=== PATIENT | male | born 1945 | race Two or more races ===

== ENCOUNTER 2023-05-06 11:17 | Emergency (ER) | payer OTHER ==
[~2023-05-06] VITALS: Ht 180.3 cm; Wt 79.4 kg
== END 2023-05-06 14:26 | disposition home or self-care (01) ==
LOC: ER 11:17
DX: U07.1 COVID-19 (principal)

== ENCOUNTER 2023-06-10 18:54 | Inpatient (IN) | payer OTHER ==
[~2023-06-10] VITALS: Ht 180.3 cm; Wt 77.1 kg
[2023-06-10] MEDS ORDERED: RAYOS5 MG PO (19:00)
[2023-06-10] MEDS ORDERED: ENALAPRIL MALEA10 MG PO (19:00)
[2023-06-10] MEDS ORDERED: ADULT LOW DOSE81 M1 PO (19:01)
[2023-06-10] MEDS ORDERED: TAMS0.4C PO (19:01)
[2023-06-10] MEDS ORDERED: RINVOQ ER15 MG PO (19:01)
[2023-06-10] MEDS ORDERED: PROZAC20 MG PO (19:02)
[2023-06-10] MEDS ORDERED: 0.9 % SODIUM CHLORIDE 1,000 ML IV SCH (19:45)
[2023-06-10] MEDS ORDERED: ACETAMINOPHEN 500 MG GEL..CAP PO ONE (20:00)
[2023-06-10 20:43] LABS: HEMOGLOBIN 11.1 g/dL (13-16.00); MEAN CELL VOLUME 87.9 fL (80.0-100.00); MEAN CORPUSCULAR HEMOGLOBIN 31.5 pg (27.00-32.0); MEAN CORPUSCULAR HGB CONC 35.8 g/dl (32.0-36.0); PLATELET COUNT 180 K/uL (150-450); RED BLOOD COUNT 3.53 M/uL (4.00-6.00); RED CELL DISTRIBUTION WIDTH 17.4 % (11.5-14.5)
[2023-06-10 20:59] LABS: PH,URINE 6.5 (5.0-8.0); URINE APPEARANCE Clear; URINE BILIRRUBIN Negative (NEGATIVE); URINE BLOOD Negative; URINE COLOR Dark Yellow; URINE GLUCOSE Negative (NEGATIVE); URINE LEUKOCYTE Negative; URINE NITRATE Negative; URINE PROTEIN Trace (NEGATIVE)
[2023-06-10 21:00] LABS: URINE BACTERIA 30.2 uL (0.0-1933); URINE EPITHELIAL CELLS 3.2 uL (0.0-38.8); URINE WBC 3.8 uL (0.0-23.2)
[2023-06-10] MEDS ORDERED: ONDANSETRON HCL 2 MG/ML VIAL IV ONE (21:00)
[2023-06-10 21:12] LABS: ALBUMIN 3.5 gm/dL (3.4-5.0); BILIRUBIN TOTAL 2.67 mg/dL (0.3-1.2); CALCIUM 8.6 mg/dL (8.5-10.1); CREATININE SERUM 0.81 mg/dL (0.70-1.30); GFR 91.69; GLOBULINA 3.3 G/DL (2.4-3.5); POTASSIUM 4.46 mEq/L (3.5-5.1); TOTAL PROTEIN 6.8 gm/dL (6.4-8.2)
[2023-06-10] MEDS ORDERED: LORazepam 2 MG/ML VIAL IM ONE (23:45)
[2023-06-11] MEDS ORDERED: 0.9 % SODIUM CHLORIDE 1,000 ML IV SCH (00:15)
[2023-06-11] MEDS ORDERED: ACETAMINOPHEN 650 MG SUPP.RECT RECTAL PRN (00:30)
[2023-06-11] MEDS ORDERED: LORazepam 2 MG/ML VIAL IV STA (01:39)
[2023-06-11] MEDS ORDERED: LORazepam 2 MG/ML VIAL IV PUSH PRN (09:15)
[2023-06-11 14:34] LABS: HEMATOCRIT 29.6 % (39.0-48.0); HEMOGLOBIN 10.7 g/dL (13-16.00); MEAN CELL VOLUME 88.2 fL (80.0-100.00); MEAN CORPUSCULAR HEMOGLOBIN 31.9 pg (27.00-32.0); MEAN CORPUSCULAR HGB CONC 36.2 g/dl (32.0-36.0); PLATELET COUNT 181 K/uL (150-450); RED BLOOD COUNT 3.36 M/uL (4.00-6.00); RED CELL DISTRIBUTION WIDTH 17.5 % (11.5-14.5)
[2023-06-11 15:24] LABS: BILIRUBIN TOTAL 2.73 mg/dL (0.3-1.2); CALCIUM 8.1 mg/dL (8.5-10.1); CREATININE SERUM 0.68 mg/dL (0.70-1.30); GFR 112.2; GLOBULINA 2.8 G/DL (2.4-3.5); PHOSPHOROUS 2.7 mg/dL (2.5-4.9); POTASSIUM 4.24 mEq/L (3.5-5.1); TOTAL PROTEIN 5.8 gm/dL (6.4-8.2)
[2023-06-11] MEDS ORDERED: PIPERACILLIN/TAZOBACTAM SODIUM 3.375 GM in 0.9 % SODIUM CHLORIDE 100 ML IV SCH (18:31)
[2023-06-12 05:11] LABS: HEMATOCRIT 29.8 % (39.0-48.0); HEMOGLOBIN 10.7 g/dL (13-16.00); MEAN CELL VOLUME 89.2 fL (80.0-100.00); MEAN CORPUSCULAR HGB CONC 35.8 g/dl (32.0-36.0); PLATELET COUNT 190 K/uL (150-450); RED BLOOD COUNT 3.34 M/uL (4.00-6.00); RED CELL DISTRIBUTION WIDTH 17.5 % (11.5-14.5)
[2023-06-12 05:24] LABS: ALBUMIN 2.8 gm/dL (3.4-5.0); BILIRUBIN TOTAL 2.72 mg/dL (0.3-1.2); CREATININE SERUM 0.71 mg/dL (0.70-1.30); GFR 106.75; GLOBULINA 2.9 G/DL (2.4-3.5); PHOSPHOROUS 2.4 mg/dL (2.5-4.9); POTASSIUM 3.91 mEq/L (3.5-5.1); TOTAL PROTEIN 5.7 gm/dL (6.4-8.2)
[2023-06-12 05:42] LABS: C-REACTIVE PROTEIN 27.1 MG/DL (0.00-0.29)
[2023-06-12 11:24] LABS: URINE APPEARANCE Clear; URINE BILIRRUBIN Small (NEGATIVE); URINE BLOOD Trace; URINE COLOR Dark Yellow; URINE GLUCOSE Negative (NEGATIVE); URINE LEUKOCYTE Negative; URINE NITRATE Negative
[2023-06-12 11:29] LABS: URINE BACTERIA 13.8 uL (0.0-1933); URINE EPITHELIAL CELLS 19.1 uL (0.0-38.8); URINE RBC 37.6 uL (0.0-20.8); URINE WBC 8.5 uL (0.0-23.2)
[2023-06-12 12:00] LABS: URINE PROTEIN 100 (NEGATIVE)
[2023-06-12] MEDS ORDERED: POTASSIUM PHOS,M-BASIC-D-BASIC 9 MM in 0.9 % SODIUM CHLORIDE 250 ML IV ONE (12:00)
[2023-06-12] MEDS ORDERED: FUROsemide 20 MG/2 ML VIAL IV ONE (14:30)
[2023-06-12] MEDS ORDERED: fentaNYL CITRATE 50 MCG/ML AMPUL IV PUSH ONE (16:30)
[2023-06-12] MEDS ORDERED: METHYLPREDNISOLONE SOD SUCC 40 MG VIAL IV STA (22:33)
[2023-06-13 06:36] LABS: HEMATOCRIT 31.7 % (39.0-48.0); HEMOGLOBIN 11.2 g/dL (13-16.00); MEAN CORPUSCULAR HEMOGLOBIN 31.1 pg (27.00-32.0); MEAN CORPUSCULAR HGB CONC 35.3 g/dl (32.0-36.0); PLATELET COUNT 217 K/uL (150-450); RED CELL DISTRIBUTION WIDTH 17.4 % (11.5-14.5)
[2023-06-13] MEDS ORDERED: FUROsemide 40 MG/4 ML VIAL IV STA (06:41)
[2023-06-13] MEDS ORDERED: METHYLPREDNISOLONE SOD SUCC 125 MG VIAL IV STA (06:43)
[2023-06-13] MEDS ORDERED: LEVALBUTEROL HCL 1.25 MG/3 ML SOLUTION IH SCH (06:43)
[2023-06-13 07:11] LABS: ABG PH 7.399 (7.35-7.45); ABG PO2 116.5 mmHg (80-100); ABG pCO2 34.1 mmHg (35-45); BASE EXCESS -3.4 mmol/l; BICARBONATE 20.6 mmol/l (23-25); SaO2 98.5 %; Tco2 21.6 mmol/l; allen test SATISFACTORY; o2 100 %; puncture site RADIAL LEFT
[2023-06-13 07:24] LABS: ALBUMIN 2.7 gm/dL (3.4-5.0); CALCIUM 8.3 mg/dL (8.5-10.1); CREATININE SERUM 0.63 mg/dL (0.70-1.30); GFR 122.54; PHOSPHOROUS 2.5 mg/dL (2.5-4.9); POTASSIUM 4.05 mEq/L (3.5-5.1)
[2023-06-13 08:22] LABS: TSH 0.263 uIU/mL (0.358-3.74)
[2023-06-13] MEDS ORDERED: METHYLPREDNISOLONE SOD SUCC 40 MG VIAL IV SCH (09:00)
[2023-06-13] MEDS ORDERED: SODIUM CL 0.9% 100 ML IV.SOLN IV ONE (16:21)
[2023-06-14 07:57] LABS: CALCIUM 8.9 mg/dL (8.5-10.1); CREATININE SERUM 0.89 mg/dL (0.70-1.30); GFR 82.24; POTASSIUM 3.41 mEq/L (3.5-5.1); T4 TOTAL 6.99 UG/DL (4.5-12.1)
[2023-06-14 08:58] LABS: URIC ACID 3.6 mg/dL (3.5-8.5)
[2023-06-14 17:17] LABS: URINE APPEARANCE Turbid; URINE BILIRRUBIN Small (NEGATIVE); URINE BLOOD Large; URINE COLOR Orange; URINE GLUCOSE Negative (NEGATIVE); URINE LEUKOCYTE Small; URINE NITRATE Negative
[2023-06-14 17:21] LABS: URINE BACTERIA 264.5 uL (0.0-1933); URINE EPITHELIAL CELLS 4.1 uL (0.0-38.8)
[2023-06-14 17:24] LABS: URINE PROTEIN 100 (NEGATIVE)
[2023-06-15] MEDS ORDERED: SODIUM BICARBONATE 1 MEQ/ML DISP.SYRIN 50ML IV ONE ×2 (05:14→05:15)
[2023-06-15] MEDS ORDERED: SODIUM BICARBONATE IV SCH (05:15)
[2023-06-15] MEDS ORDERED: SODIUM CHLORIDE 0.45% IV SCH (05:15)
[2023-06-15 06:23] LABS: ABG PH 7.379 (7.35-7.45); ABG pCO2 34.4 mmHg (35-45)
[2023-06-15 06:24] LABS: BASE EXCESS -4.4 mmol/l; BICARBONATE 19.8 mmol/l (23-25); SaO2 62.9 %; Tco2 20.9 mmol/l; allen test SATISFACTORY; o2 100 %; puncture site RADIAL RIGHT
[2023-06-15 07:13] LABS: PH,URINE 5.5 (5.0-8.0); URINE APPEARANCE Turbid; URINE BILIRRUBIN Small (NEGATIVE); URINE BLOOD Large; URINE COLOR Red; URINE GLUCOSE Negative (NEGATIVE); URINE LEUKOCYTE Moderate; URINE NITRATE Positive
[2023-06-15 07:17] LABS: URINE BACTERIA 1422.5 uL (0.0-1933); URINE EPITHELIAL CELLS 14.2 uL (0.0-38.8); URINE WBC 243.3 uL (0.0-23.2)
[2023-06-15 07:50] LABS: ABG PO2 97.9 mmHg (80-100); ABG pCO2 37.8 mmHg (35-45); BASE EXCESS 1.9 mmol/l; BICARBONATE 25.7 mmol/l (23-25); SaO2 97.9 %; Tco2 26.9 mmol/l; allen test SATISFACTORY; o2 100 %; puncture site RADIAL LEFT
[2023-06-15 07:54] LABS: CREATININE SERUM 0.85 mg/dL (0.70-1.30); GFR 86.73; MAGNESIUM 2.9 mg/dL (1.8-2.4); POTASSIUM 3.33 mEq/L (3.5-5.1)
[2023-06-15 08:22] LABS: URINE PROTEIN 300 (NEGATIVE); URINE RBC > 10558.9 uL (0.0-20.8)
[2023-06-15] MEDS ORDERED: POTASSIUM CHLORIDE 20MEQ/100ML H2O PB IV ONE (18:15)
[2023-06-15] MEDS ORDERED: METHYLPREDNISOLONE SOD SUCC 40 MG VIAL IV SCH (21:00)
[2023-06-16] MEDS ORDERED: QUETIAPINE FUMARATE 25 MG TABLET PO STA (09:20)
[2023-06-16 09:32] LABS: ABG PH 7.462 (7.35-7.45); ABG PO2 92.5 mmHg (80-100); ABG pCO2 39.8 mmHg (35-45); BASE EXCESS 3.8 mmol/l; BICARBONATE 27.8 mmol/l (23-25); SaO2 97.7 %
[2023-06-16 09:33] LABS: allen test SATISFACTORY; o2 100 %; puncture site RADIAL RIGHT
[2023-06-16] MEDS ORDERED: METHYLPREDNISOLONE SOD SUCC 40 MG VIAL IV SCH (09:58)
[2023-06-16] MEDS ORDERED: MORPHINE SULFATE 4 MG/ML VIAL IV PRN (10:00)
[2023-06-16] MEDS ORDERED: METHYLPREDNISOLONE SOD SUCC 125 MG VIAL IV SCH (14:00)
[2023-06-16] MEDS ORDERED: FUROsemide 20 MG/2 ML VIAL IV SCH (17:24)
[2023-06-16] MEDS ORDERED: QUETIAPINE FUMARATE 25 MG TABLET PO SCH (21:00)
== END 2023-06-16 20:17 | disposition expired | DRG 180 ==
LOC: ER 18:54 → MEDI 06-11 00:17 → MEDJ 06-13 13:36
PROVIDERS: Emergency Medicine; Internal Medicine; Internal Medicine Endocrinology, Diabetes & Metabolism; Internal Medicine Infectious Disease; Internal Medicine Nephrology; ADMIT Internal Medicine; ATTEND Internal Medicine
PROC: B020ZZZ Computerized Tomography (CT Scan) of Brain (ICD-10-PCS; 2023-06-10)
PROC: B030ZZZ Magnetic Resonance Imaging (MRI) of Brain (ICD-10-PCS; 2023-06-11)
PROC: BB24ZZZ Computerized Tomography (CT Scan) of Bilateral Lungs (ICD-10-PCS; 2023-06-11)
PROC: 0BBC3ZX Excision of Right Upper Lung Lobe, Percutaneous Approach, Diagnostic (ICD-10-PCS; principal; 2023-06-12)
PROC: 3E0F7GC Introduction of Other Therapeutic Substance into Respiratory Tract, Via Natural or Artificial Opening (ICD-10-PCS; 2023-06-13)
PROC: 4A12X4Z Monitoring of Cardiac Electrical Activity, External Approach (ICD-10-PCS; 2023-06-13)
PROC: 0DH67UZ Insertion of Feeding Device into Stomach, Via Natural or Artificial Opening (ICD-10-PCS; 2023-06-13)
PROC: 3E0G76Z Introduction of Nutritional Substance into Upper GI, Via Natural or Artificial Opening (ICD-10-PCS; 2023-06-13)
PROC: 5A09357 Assistance with Respiratory Ventilation, Less than 24 Consecutive Hours, Continuous Positive Airway Pressure (ICD-10-PCS; 2023-06-15)
DX: C78.01 Secondary malignant neoplasm of right lung (principal); G93.41 Metabolic encephalopathy; J96.01 Acute respiratory failure with hypoxia; J69.0 Pneumonitis due to inhalation of food and vomit; E22.2 Syndrome of inappropriate secretion of antidiuretic hormone; J84.9 Interstitial pulmonary disease, unspecified; E27.3 Drug-induced adrenocortical insufficiency; J84.09 Other alveolar and parieto-alveolar conditions; E86.0 Dehydration; E07.81 Sick-euthyroid syndrome; E78.5 Hyperlipidemia, unspecified; J84.10 Pulmonary fibrosis, unspecified; M06.9 Rheumatoid arthritis, unspecified; I67.9 Cerebrovascular disease, unspecified; R41.82 Altered mental status, unspecified; R59.0 Localized enlarged lymph nodes; D63.8 Anemia in other chronic diseases classified elsewhere; F17.200 Nicotine dependence, unspecified, uncomplicated; Z66 Do not resuscitate; Z86.16 Personal history of COVID-19; G30.8 Other Alzheimer's disease; F02.80 Dementia in other diseases classified elsewhere, unspecified severity, without behavioral disturbance, psychotic disturbance, mood disturbance, and anxiety
CPT/HCPCS: 70553